=== PATIENT | female | born 1980 | race Caucasian/White ===

== ENCOUNTER 2017-07-08 10:15 | Emergency (ER) | payer SELFPAY ==
[2017-07-08] MEDS ORDERED: ONDANSETRON 4 MG TAB.RAPDIS PO ONE (10:26)
[2017-07-08] MEDS ORDERED: NORMAL SALINE 1000 ML 1,000 ML IV ONE ×2 (10:35→11:18)
--- NOTE | 2017-07-08 10:35 | ER Document Report ---
ED Medical Screen (RME) - General Chief Complaint: Nausea/Vomiting Stated Complaint: VOMITING Time Seen by Provider: 07/08/17 10:21 Mode of Arrival: Ambulatory Information source: Patient Notes: 37-year-old female presents with complaints of nausea vomiting epigastric abdominal pain cramping sensation intermittently over the past 1 week I have greeted and performed a rapid initial assessment of this patient. A comprehensive ED assessment and evaluation of the patient, analysis of test results and completion of the medical decision making process will be conducted by additional ED providers. PHYSICAL EXAMINATION: GENERAL: Well-appearing, well-nourished and in no acute distress. HEAD: Atraumatic, normocephalic. EYES: Pupils equal round extraocular movements intact, conjunctiva are normal. ENT: Nares patent NECK: Normal range of motion LUNGS: No respiratory distress Musculoskeletal: Normal range of motion NEUROLOGICAL: Normal speech, normal gait. PSYCH: Normal mood, normal affect. SKIN: Warm, Dry, normal turgor, no rashes or lesions noted. TRAVEL OUTSIDE OF THE [place] IN LAST 30 DAYS: No - Related Data Allergies/Adverse Reactions: No Known Allergies Allergy (Verified 07/08/17 10:17) Past Medical History - Social History Chew tobacco use (# tins/day): No Frequency of alcohol use: Occasional Drug Abuse: None Renal/ Medical History: Denies: Hx Peritoneal Dialysis Surgical Hx: Negative - Immunizations Hx Diphtheria, Pertussis, Tetanus Vaccination: No Physical Exam - Vital signs Vitals: Temp Pulse Resp BP Pulse Ox 97.7 F 81 16 131/90 H 100 07/08/17 10:07/08/17 10:07/08/17 10:07/08/17 10:07/08/17 10:17 Course - Vital Signs Vital signs: Temp Pulse Resp BP Pulse Ox 97.7 F 81 16 131/90 H 100 07/08/17 10:07/08/17 10:07/08/17 10:07/08/17 10:07/08/17 10:17
[2017-07-08] MEDS ORDERED: METOCLOPRAMIDE HCL INJ/PF 10 MG/2 ML SDV IV ONE (10:36)
[2017-07-08] MEDS ORDERED: MAG HYDROX/AL HYDROX/SIMETH SUSP 30 ML UDCUP PO ONE ×2 (10:45→11:21)
[2017-07-08] MEDS ORDERED: LIDOCAINE 2% VISCOUS SOLN 20 ML UDCUP PO ONE ×2 (10:45→11:21)
[2017-07-08 10:46] LABS: ABSOLUTE BASOPHILS # (AUTO) 0.1 10^3/uL (0.0-0.2); ABSOLUTE EOSINOPHILS # (AUTO) 0.1 10^3/uL (0.0-0.6); ABSOLUTE LYMPHOCYTES (AUTO) 1.6 10^3/uL (0.5-4.7); ABSOLUTE MONOCYTES (AUTO) 0.6 10^3/uL (0.1-1.4); ABSOLUTE NEUT (AUTO) 9.1 10^3/uL (1.7-8.2); BASOPHILS % (AUTO) 0.6 % (0-2); EOSINOPHILS % (AUTO) 0.5 % (0-6); HEMATOCRIT 37.1 % (36.0-47.0); HEMOGLOBIN 12.2 g/dL (12.0-15.5); HGB HCT DIFFERENCE -0.5; LYMPHOCYTES % (AUTO) 13.8 % (13-45); MEAN CORPUSCULAR HEMOGLOBIN 27.8 pg (27.0-33.4); MEAN CORPUSCULAR HGB CONC 32.9 g/dL (32.0-36.0); MEAN CORPUSCULAR VOLUME 84 fl (80-97); MONOCYTES % (AUTO) 5.3 % (3-13); RED BLOOD COUNT 4.39 10^6/uL (3.72-5.28); RED CELL DISTRIBUTION WIDTH 20.2 % (11.5-14.0); SEGMENTED NEUTROPHILS % (AUTO) 79.8 % (42-78); WHITE BLOOD COUNT 11.4 10^3/uL (4.0-10.5)
--- NOTE | 2017-07-08 10:55 | ER Document Report ---
ED GI/ - General Mode of Arrival: Ambulatory Information source: Patient TRAVEL OUTSIDE OF THE [place] 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 denies: Fever Similar symptoms previously: No Recently seen / treated by doctor: No <RONY DEE - Last Filed: 07/08/17 10:45> <KRISTAL FRANCIS - Last Filed: 07/08/17 14:12> - General Chief Complaint: Nausea/Vomiting Stated Complaint: VOMITING Time Seen by Provider: 07/08/17 10:40 - HPI Notes: 07/08/17 10:40 Patient is a 37 year old female presenting to the emergency department for nausea, vomiting, and epigastric pain. Patient's symptoms were onset Sunday and have persisted for 1 week. Patient states there was maybe 2 days where she felt better such as yesterday but then the symptoms return. Patient also has a small amount of diarrhea but denies any fever. Patient points to the center of her epigastric area when describing the pain. Patient states her pain came with the vomiting. Patient is currently on her menstrual cycle and states it has been light. Patient does not take any regular medications. Patient has no medical or surgical history. Patient does smoke 1/2 pack per day. (RONY DEE) - Related Data Allergies/Adverse Reactions: No Known Allergies Allergy (Verified 07/08/17 10:17) Past Medical History - General Information source: Patient - Social History Smoking Status: Current Every Day Smoker Cigarette use (# per day): Yes - 1/2 ppd Chew tobacco use (# tins/day): No Frequency of alcohol use: Occasional Drug Abuse: None Family History: None Patient has suicidal ideation: No Patient has homicidal ideation: No - Medical History Medical History: Negative Surgical Hx: Negative - Immunizations Hx Diphtheria, Pertussis, Tetanus Vaccination: No <RONY DEE - Last Filed: 07/08/17 10:45> Review of Systems - Review of Systems Constitutional: No symptoms reported. denies: Fever EENT: No symptoms reported Cardiovascular: No symptoms reported Respiratory: No symptoms reported Gastrointestinal: See HPI, Abdominal pain - epigastric, Diarrhea, Nausea, Vomiting Genitourinary: No symptoms reported Female Genitourinary: No symptoms reported Musculoskeletal: No symptoms reported Skin: No symptoms reported Hematologic/Lymphatic: No symptoms reported Neurological/Psychological: No symptoms reported -: Yes All other systems reviewed and negative <RONY DEE - Last Filed: 07/08/17 10:45> Physical Exam - Vital signs Interpretation: Normal <RONY DEE - Last Filed: 07/08/17 10:45> <KRISTAL FRANCIS - Last Filed: 07/08/17 14:12> - Vital signs Vitals: Temp Pulse Resp BP Pulse Ox 97.7 F 81 16 131/90 H 100 07/08/17 10:17 07/08/17 10:17 07/08/17 10:17 07/08/17 10:17 07/08/17 10:17 - Notes Notes: GENERAL: Alert, interacts well, appears uncomfortable. Mild distress. HEAD: Normocephalic, atraumatic. EYES: Appear normal. Pupils equal, round, and reactive to light. ENT: Moist mucus membranes, tongue midline. NECK: Full range of motion. Supple. Trachea midline. LUNGS: Clear to auscultation bilaterally, no wheezes, rales, or rhonchi. No respiratory distress. HEART: Regular rate and rhythm. No murmurs, gallops, or rubs. ABDOMEN: Soft, epigastric area is exquisitely tender to palpation. Non- distended. Normal bowel sounds. EXTREMITIES: Moves all 4 extremities spontaneously. Normal strength. No edema. NEUROLOGICAL: Alert and oriented x3. Normal speech. No focal neurological deficits. GSC 15. PSYCH: Normal affect, normal mood. SKIN: Warm, dry, normal turgor. No rashes or lesions noted. (RONY DEE) Course - Laboratory Result Diagrams: 07/08/17 10:30 07/08/17 10:30 <LEILARONY - Last Filed: 07/08/17 10:45> - Laboratory Result Diagrams: 07/08/17 10:30 07/08/17 10:30 <KRISTAL FRANCIS - Last Filed: 07/08/17 14:12> - Vital Signs Vital signs: Temp Pulse Resp BP Pulse Ox 97.7 F 81 16 131/90 H 100 07/08/17 10:17 07/08/17 10:17 07/08/17 10:17 07/08/17 10:17 07/08/17 10:17 - Laboratory Laboratory results interpreted by me: 07/08/17 07/08/17 07/08/17 10:30 10:30 11:56 WBC 11.4 H RDW 20.2 H Seg Neutrophils % 79.8 H Absolute Neutrophils 9.1 H AST 12 L Urine Blood MODERATE H Discharge <RONY DEE - Last Filed: 07/08/17 10:45> <KRISTAL FRANCIS - Last Filed: 07/08/17 14:12> - Discharge Clinical Impression: Cyclic vomiting syndrome Qualifiers: Vomiting Intractability: non-intractable Nausea presence: with nausea Qualified Code(s): G43.A0 - Cyclical vomiting, not intractable Condition: Stable Disposition: HOME, SELF-CARE Additional Instructions: Your vomiting and abdominal pain is most likely due to something called "cyclic vomiting". This is a disorder related to smoking marijuana. Take the medications as prescribed for nausea, vomiting and abdominal pain. Take Prilosec OTC daily to reduce stomach acid. Drink small sips of cool clear liquids. It would be best to stop smoking marijuana as this is the most likely explanation for the vomiting. Follow-up with a local medical doctor if not improving. RETURN TO THE EMERGENCY ROOM IF ANY NEW OR WORSENING SYMPTOMS. Prescriptions: Hydrocodone/Acetaminophen [[place] 5-325 mg Tablet] 1 tab PO Q4 PRN #10 tablet PRN Reason: Promethazine HCl [Phenergan 25 mg Tablet] 25 - 50 mg PO ASDIR PRN #12 tablet PRN Reason: Scribe Documentation - Scribe Written by Scribe:: Candy Sagastume 07/08/2017 11:05 acting as scribe for :: Diego <RONY DEE - Last Filed: 07/08/17 10:45>
[2017-07-08 10:58] LABS: ALANINE AMINOTRANSFERASE 29 U/L (9-52); ALBUMIN 4.5 g/dL (3.5-5.0); ALKALINE PHOSPHATASE 65 U/L (38-126); ANION GAP 9 (5-19); ASPARTATE AMINO TRANSFERASE 12 U/L (14-36); BILIRUBIN,DIRECT 0.3 mg/dL (0.0-0.4); BILIRUBIN,TOTAL 0.7 mg/dL (0.2-1.3); BLOOD UREA NITROGEN 11 mg/dL (7-20); CALCIUM 9.5 mg/dL (8.4-10.2); CARBON DIOXIDE 28 mmol/L (22-30); CHLORIDE 105 mmol/L (98-107); CREATININE RESULT 0.75 mg/dL (0.52-1.25); GLUCOSE 106 mg/dL (75-110); LIPASE 154.3 U/L (23-300); POTASSIUM 4.3 mmol/L (3.6-5.0); SODIUM 141.5 mmol/L (137-145); TOTAL PROTEIN 7.2 g/dL (6.3-8.2)
[2017-07-08] MEDS ORDERED: ONDANSETRON HCL INJ/PF 4 MG/2 ML SDV IV ONE (11:21)
[2017-07-08 12:08] LABS: AMORPHOUS SEDIMENT,URINE TRACE /HPF; APPEARANCE,URINE SLIGHTLY-CLOUDY; BILIRUBIN,URINE NEGATIVE (NEGATIVE); GLUCOSE, URINE NEGATIVE (NEGATIVE); KETONES,URINE NEGATIVE (NEGATIVE); LEUKOCYTE ESTERASE,URINE NEGATIVE (NEGATIVE); NITRITE,URINE NEGATIVE (NEGATIVE); PROTEIN,URINE NEGATIVE (NEGATIVE); URINE SPECIFIC GRAVITY 1.015; UROBILINOGEN,URINE NEGATIVE mg/dL (<2.0)
[2017-07-08] MEDS ORDERED: DEXTROSE 5%-LACTATED RINGERS 1,000 ML IV ONE (12:10)
[2017-07-08] MEDS ORDERED: MORPHINE SULFATE 10 MG/ML INJ IV ONE (12:11)
[2017-07-08] MEDS ORDERED: DROPERIDOL 5 MG/2 ML IV ONE (13:13)
[2017-07-08 13:18] LABS: URINE BARBITURATES SCREEN NEGATIVE; URINE METHADONE SCREEN NEGATIVE; URINE OPIATES LOW NEGATIVE; URINE PHENCYCLIDINE SCREEN NEGATIVE
[2017-07-08] MEDS ORDERED: HALOPERIDOL LACTATE INJ 5 MG/1 ML VIAL IV ONE (13:29)
[2017-07-08] MEDS ORDERED: DIPHENHYDRAMINE HCL 50 MG/ML VIAL IV ONE (13:30)
[2017-07-08 14:23] VITALS: BP 139/67
== END 2017-07-08 14:23 | disposition home or self-care (01) ==
LOC: ER 10:15
DX: G43.A0 Cyclical vomiting, in migraine, not intractable (principal); R10.13 Epigastric pain; R19.7 Diarrhea, unspecified; F17.210 Nicotine dependence, cigarettes, uncomplicated
CPT/HCPCS: 99284; 96361; 96375; 96365; 96366; 36415; 83690; 85025; 81025; 80053; 81001; 80307; J1200; S0119; J1630; J3490; J2765; J2270; J2405; J7030

== ENCOUNTER 2018-09-22 11:48 | Emergency (ER) | payer MEDICAID ==
[2018-09-22 11:54] VITALS: BP 139/79
== END 2018-09-22 13:43 | disposition left against medical advice (07) ==
LOC: ER 11:48
DX: Z53.21 Procedure and treatment not carried out due to patient leaving prior to being seen by health care provider (principal)

== ENCOUNTER → 2018-10-29 | Outpatient (CLI) | payer MEDICAID ==
--- NOTE | 2018-10-29 14:12 | WOMENS IMAGING REPORT ---
EXAM DESCRIPTION: U/S BREAST UNILATERAL, COMPL COMPLETE DATE/TIME: 10/29/2018 10:14 am REASON FOR STUDY: RT BREAST N64.4 N64.4 MASTODYNIA FINDINGS: Please see combined report for performance of procedure and radiologic supervision and int erpretation. IMPRESSION: Please see combined report for performance of procedure and radiologic supervision and i nterpretation. Reading location - IP/workstation name: [email or web address]
== END ==
LOC: WI 09:01
PROVIDERS: ATTEND Nurse Practitioner Family
DX: N64.4 Mastodynia (principal)
CPT/HCPCS: 76641; 77066